=== PATIENT | male | born 1990 | race Caucasian/White ===

== ENCOUNTER → 2018-03-14 15:05 | Outpatient (CLI) | payer MEDICAID, SELFPAY ==
[2018-03-14 17:32] LABS: Chlamydia Trachomatis by PCR POSITIVE (Negative); Neisserai gonorrhoeae by PCR Positive (Negative); Probe Check PASS; Trichomonas Vag DNA by PCR Negative (Negative)
[2018-03-14 17:33] LABS: Probe Check PASS; Sample Adequacy Control PASS; Specimen Processing Control PASS
== END ==
PROVIDERS: Family Provider Family Medicine; PCP Family Medicine; Visit Provider Family Medicine
DX: N39.0 Urinary tract infection, site not specified (principal)
CPT/HCPCS: 87491; 87591; 87661

== ENCOUNTER → 2018-11-27 10:28 | Outpatient (CLI) | payer MEDICAID, SELFPAY ==
[2018-11-26 12:57] VITALS: BMI 27.3
--- NOTE | 2018-11-27 11:08 | RAD_ITS ---
STUDY: X-RAY - LUMBAR SPINE REASON FOR EXAM: Male, 27 years old. Low back pain TECHNIQUE: 3 view(s) of the lumbar spine were obtained. COMPARISON: None FINDINGS: Normal lumbar lordosis. There is no substantial scoliosis. There is a normal alignment of the vertebrae. Normal vertebral bodies and endplates. Normal disc space heights. The soft tissue structures are unremarkable. RAD/Lumbar Spine 2 or 3 Views IMPRESSION: Normal x-ray examination of the lumbar spine. Electronically Signed: Daniel Childers MD at 12:12 EDT , Service support ,
[2018-11-27 12:22] LABS: Absolute Lymphocyte Count 1.36 X10^3/ul (0.83-4.51); Absolute Neutrophil Count 2.7 X10^3/uL (2.0-7.7); Basophil# 0.05 X10^3/uL; Eosinophil# 0.33 X10^3/uL; Eosinophils% 6.8 % (0-5); Hematocrit 47.4 % (40-54); Lymphocyte # 1.36 X10^3/ul (4.0); Lymphocyte % 28.2 % (19-41); Mean Corp Hgb Conc 33.8 g/gl (32-36); Mean Corpuscular Hgb 28.6 pg (27.0-32.0); Mean Corpuscular Volume 84.8 fL (80-94); Mean Platelet Vol. 10.7 fl (6.2-12.0); Monocyte# 0.42 X10^3/uL; Monocyte% 8.7 % (0-10); Neutrophil # 2.67 X10^3/uL (2.7-7.7); Neutrophil % 55.3 % (47-70); Platelet Count 216 K/mm3 (150-450); RBC Distribution Width CV 12.6 % (11.6-14.6); RBC Distribution Width SD 38.8 fl (35.1-43.9); Red Blood Count 5.59 M/mm3 (4.6-6.2); White Blood Count 4.8 K/mm3 (4.4-11.0)
[2018-11-27 12:28] LABS: POSITIVE COUNT NO; POSITIVE DIFFERENTIAL NO; POSITIVE MORPHOLOGY NO
[2018-11-27 12:37] LABS: ALB/GLOB Ratio 1.2 RATIO (0.9-2.4); AST(SGOT) 66 U/L (15-37); Alanine Aminotransfer ALT/SGPT 125 U/L (16-61); Albumin, Serum 4.3 g/dL (3.2-5.0); Alkaline Phosphatase 77 U/L (45-117); Anion Gap 3 (5-15); BUN 18 mg/dL (7-18); BUN/Creat Ratio 15.9 RATIO (10-20); Calcium,Total 8.8 mg/dL (8.5-10.1); Chloride 107 mmol/L (98-107); Creatinine, Serum 1.13 mg/dL (0.70-1.30); EST Glomerular Filtration Rate 81 mL/min (>60); Est Glom Filt Rate - Afr Amer 98 mL/min (>60); Globulin 3.6 g/dL (2.2-4.2); Glucose 82 mg/dL (74-106); Potassium 4.7 mmol/L (3.5-5.1); Protein, Total 7.9 g/dL (6.4-8.2); Sodium Level 135 mmol/L (136-145)
[2018-11-27 13:24] LABS: HIV - WCH Non-Reactive (Nonreactive)
[2018-12-11 14:06] LABS: HCV Quant. RNA PCR See Final Results IU/mL (.)
[2018-12-12 15:41] LABS: HCV log 10 7.017 (.); HEPATITIS B SURFACE AG Negative (Negative); HLA B27 Negative (.)
== END ==
LOC: BIMLAB 10:29 → RAD 11:00
PROVIDERS: Family Provider Internal Medicine; PCP Internal Medicine; Referring Provider Internal Medicine; Visit Provider Internal Medicine
DX: M54.9 Dorsalgia, unspecified (principal); G89.29 Other chronic pain; B19.20 Unspecified viral hepatitis C without hepatic coma
CPT/HCPCS: 36415; 72100; 80053; 81374; 85025; 86703; 87340; 87522

== ENCOUNTER 2019-02-28 12:21 | Emergency (ER) | payer MEDICAID, SELFPAY ==
[2018-12-27 14:24] VITALS: BMI 27.3
[2019-02-28 12:22] VITALS: BP 135/83; PULSE 76; RESP 16; TEMP 36.9; O2SAT 96; BMI 24.5
[2019-02-28 12:44] VITALS: BP 135/83; PULSE 76; RESP 16; TEMP 36.9; O2SAT 96
--- NOTE | 2019-02-28 13:08 | ED.DEP ---
ED Disposition - Plan for ED Patient: Instructions: Contact Dermatitis Prescriptions: Prednisone [Deltasone] 20 mg PO DAILY #4 tablet Referrals: Cheko Casillas MD [Primary Care Provider] -
--- NOTE | 2019-02-28 13:10 | ED.VISSUMM ---
- ER Visit Summary Date of Service: 02/28/19 Chief Complaint: Rash History of Present Illness: The patient is a 28 M presenting with rash on bilateral arms. Patient works outside. He states he had redness on both arms yesterday. He initially thought it was sunburn. He then noted a rash to his forearms. He states this does not itch. He thought it might be poison heber. He states that yesterday he had cramping in both hands. He was not drinking enough fluids. This has improved. Denies other complaints. Physical Examination: Vitals are stable. Patient is afebrile. Alert no acute distress. HEENT exam is unremarkable. No mucous membrane involvement Neck is supple. Lungs are clear and equal bilaterally. Heart is regular rate and rhythm. Abdomen is soft nontender nondistended. Extremities are unremarkable. Skin is warm and dry. mild maculopapular rash bilateral volar forearms. No areas of fluctuance. Neurovascularly intact distally No focal neurologic deficit. Remainder of exam is unremarkable. Emergency Department Course and Treatment: Patient declined blood work. He was given a short course of prednisone. Advised to follow-up with primary care physician. Advised return to ED if worsening complaints. Disposition: Discharge home Impression: Contact dermatitis This note was generated with [employer] dictation software. It may contain incorrect words, spelling, and punctuation that were not noted in review of the chart prior to signing ED Disposition - Plan for ED Patient: Instructions: Contact Dermatitis Prescriptions: Prednisone [Deltasone] 20 mg PO DAILY #4 tab Prescription Printed Referrals: Cheko Casillas MD [Primary Care Provider] -
[2019-02-28] MEDS: predniSONE 20 MG Tablet 40 MG PO (13:27)
[2019-02-28 13:42] VITALS: BP 130/84; PULSE 78; RESP 16; O2SAT 96
== END 2019-02-28 13:38 | disposition home or self-care (01) ==
PROVIDERS: Emergency Provider Emergency Medicine; Family Provider Internal Medicine; PCP Internal Medicine
DX: L25.9 Unspecified contact dermatitis, unspecified cause (principal); Z86.19 Personal history of other infectious and parasitic diseases
CPT/HCPCS: 99282

== ENCOUNTER 2019-04-12 02:18 | Emergency (ER) | payer SELFPAY ==
[2019-04-12 02:19] VITALS: BP 140/85; PULSE 105; RESP 16; TEMP 37.1; O2SAT 98; BMI 23.7
--- NOTE | 2019-04-12 03:02 | ED.VIS.GEN ---
History of Present Illness Chief Complaint: Back Narrative: Patient is a 28-year-old male who presents with back pain. He was helping a friend to move. He was holding a piece of furniture about level with his head when the person on the other and dropped his end. The patient states he tried to save it. He tensed up and twisted his back. He complains of pain in his mid back on both sides. He then went to work and his symptoms continue to worsen. No numbness tingling weakness. No chest pain or shortness of breath. Patient is already on Flexeril for history of lower back pain. Past Medical History - Allergies and Home Meds Allergies/Adverse Reactions: Allergies No Known Allergies Allergy (Verified 02/28/19 12:28) Primary Care Physician: Cheko Casillas MD [Primary Care Provider] - Past Medical History: None Smoking Status: Former smoker Review of Systems All systems negative except as indicated General: Denies: Fever Cardiovascular: Denies: Chest pain Respiratory: Denies: Dyspnea Musculoskeletal: Reports: Back pain Physical Exam Vital Signs/Narrative: Vital Signs Temp Pulse Resp BP Pulse Ox 04/12/19 02:19 98.8 F 105 H 16 140/85 H 98 Inital Vital Signs reviewed: Yes General: Well nourished, Well developed Head: Normocephalic Eyes: EOMI ENT: Moist mucous membranes Neck: Supple Cardiovascular: Regular rate, Regular rhythm Respiratory: No distress, CTA bilaterally, - - Equal breath sounds bilaterally Back: - - Patient has bilateral paraspinal lower thoracic tenderness no midline pain Skin: Normal color Neurological: Alert Psychological: Normal affect Diagnostic/Tx/Re-eval - Medical Decision Making History and examination are consistent with a thoracic strain. He was advised on supportive care. He was given a prescription for naproxen. He understands to return for new or worsening symptoms. He was discharged. ED Disposition - Plan for ED Patient: Disposition: Home or Assisted Living Diagnosis: Thoracic myofascial strain Instructions: Back Sprain/Strain Prescriptions: Naproxen [Naprosyn] 500 mg PO BID #20 tab Prescription Printed Referrals: Cheko Casillas MD [Primary Care Provider] -
[2019-04-12] MEDS: Naproxen 500 MG Tablet PO (03:12)
[2019-04-12 03:13] VITALS: RESP 16
== END 2019-04-12 03:14 | disposition home or self-care (01) ==
PROVIDERS: Emergency Provider Emergency Medicine; Family Provider Internal Medicine; PCP Internal Medicine
DX: S29.012A Strain of muscle and tendon of back wall of thorax, initial encounter (principal); Z87.891 Personal history of nicotine dependence; M54.5 Low back pain; X50.1XXA Overexertion from prolonged static or awkward postures, initial encounter; Y93.E6 Activity, residential relocation; Y92.89 Other specified places as the place of occurrence of the external cause; Y99.9 Unspecified external cause status
CPT/HCPCS: 99282

== ENCOUNTER 2021-01-30 15:32 | Emergency (ER) | payer MEDICAID, SELFPAY ==
[2021-01-30 15:32] VITALS: BP 142/96; PULSE 55; RESP 16; TEMP 36.7; O2SAT 100; BMI 22.7
--- NOTE | 2021-01-30 15:40 | EDS_ITS ---
HPI History of Present Illness Chief Complaint: Overdose Narrative Narrative: 30-year-old male presenting with drug overdose. Its unclear what his intention was. Patient states that he took 3 g of fentanyl, 3 g of heroin, and some methamphetamine which is unclear at his dose. Patient is very groggy. He has pinpoint pupils. His vital signs are stable currently. [facility] Medical History Chronic back pain History of positive hepatitis C History of substance abuse Seasonal allergies Home Medications flu vac qs 2016(4 yr up)CD(PF) 60 mcg IM ONCE #1 ml 09/20/17 [Clinic Last Taken Unknown] cyclobenzaprine 10 mg tablet 10 mg PO BID PRN #60 tab 11/26/18 [Rx Last Taken Unknown] acetaminophen 650 mg tablet,extended release 650 mg PO Q8H PRN #60 tab 12/27/18 [Rx Last Taken Unknown] back brace #1 ea 12/27/18 [Rx Last Taken Unknown] methylprednisolone 4 mg tablets in a dose pack See Rx Instructions PO PER PKG DIR #21 tab 12/27/18 [Rx Last Taken Unknown] loratadine 10 mg tablet See Rx Instructions .ROUTE .COMPLEX #28 tablet 01/14/19 [Rx Last Taken Unknown] prednisone 20 mg PO DAILY #4 tab 02/28/19 [Rx Last Taken Unknown] naproxen 500 mg PO BID #20 tab 04/12/19 [Rx Last Taken Unknown] Allergy/AdvReac Type Severity Reaction Status Date / Time No Known Allergies Allergy Verified 01/30/21 15:34 Family History Father Alcoholism Social History Smoking Status: Unknown if ever smoked Electronic Cigarette Use: with nicotine alcohol intake: former substance use type: former substance user Date of last use: 07/10/17, heroin and methamphetamine what type of physical activity do you participate in: running, yoga and weight training frequency: daily ROS ROS ED Constitutional Constitutional ED: Denies fever(s) or subjective Eyes Eyes: Denies blurry vision or change in vision ENT ENT ED: Denies rhinorrhea or sore throat Cardiovascular Cardiovascular: Denies chest pain or palpitations Respiratory/Chest Respiratory/Chest: Denies cough or dyspnea Gastrointestinal Gastrointestinal: Denies abdominal pain, nausea or vomiting Genitourinary Genitourinary ED: Denies urinary frequency Musculoskeletal Musculoskeletal: Denies arthralgias, myalgias or neck pain Integumentary Denies abscess or rash Neurologic Neurologic: Denies headache(s) or weakness Psychiatric Psychiatric: Denies anxiety, depression, suicidal ideation or suicidal thoughts Endocrine Endocrinology: Denies polydipsia or polyuria EXAM Physical Exam Const Vital Signs: 01/30/21 15:32 01/30/21 15:42 Temperature 98.1 F Temperature Source Temporal Pulse Rate 55 L 55 L Respiratory Rate 16 24 H Blood Pressure 142/96 H 125/85 H Blood Pressure Mean 111 98 Pulse Ox 100 100 Oxygen Delivery Method Room Air Room Air Positive well nourished General Appearance ED: other Patient responsive but slow to respond ; Negative for pallor HEENT Reports moist mucous membranes atraumatic Eyes PERRL and EOMs intact bilaterally General Eye ED: Negative for scleral icterus Resp normal respiratory effort and clear to auscultation bilaterally Cardio regular rate and regular rhythm GI soft to palpation and non-tender Extremity General Extremety ED: Yes edema and tenderness General Extremity: edema Neuro oriented x3 Sensorium / Orientation: alert Psych Attitude: other Slow to respond Skin Skin Narrative: Track andres in the bilateral antecubital fossa. No surrounding cellulitic changes. General Skin Exam: Negative for jaundice or pallor MDM MDM MDM Narrative Medical decision making narrative: Patient presenting with overdose on methamphetamine, fentanyl, heroin. His friend is with him and states that was a probably about 30 minutes ago. His friend relates a history of congestive heart failure he believes. In the medical record I do see that he has hep C. Since his pupils are pinpoint and he is slow to respond he will get 2 of intranasal Narcan. IV access will be established. Lab work-up is started. Patient will be placed on the monitor. He will be frequently reevaluated. Review of his outside medical record shows that he has a suicide attempt which states it was my knife. He states that he is not homicidal or suicidal now. He states that the drugs were just not very good so he kept taking them. Reevaluation 1550 and patient is awake and alert and talking. We were able to obtain IV access but but were not able to obtain lab work. After a few attempts patient refuses blood work. Patient remained alert and awake. At one point he became angry and took his IV out and left on his own. Impression: 1. Opioid overdose 2. Methamphetamine abuse Discharge Plan Triage Chief Complaint: Overdose ED Provider: Roque Madrid Dx/Rx/DC Orders Instructions: ED Overdose, Opiate, ED Drug Abuse Prescriptions: No Action flu vac qs 2016(4 yr up)CD(PF) 60 mcg (15 mcg x 4)/0.5 mL syringe 60 mcg IM ONCE Qty: 1 RF: 0 cyclobenzaprine 10 mg tablet 10 mg PO BID PRN (Reason: muscle spasm) Qty: 60 RF: 2 acetaminophen [Tylenol 8 Hour] 650 mg tablet extended release 650 mg PO Q8H PRN (Reason: fever or pain) Qty: 60 RF: 1 methylprednisolone [Medrol (Dixon)] 4 mg tablets,dose pack See Rx Instructions PO PER PKG DIR Qty: 21 RF: 0 (DME) back brace misc See Dose Instructions .ROUTE .MEDSUPPLY Qty: 1 RF: 0 prednisone 20 MG tablet 20 mg PO DAILY Qty: 4 RF: 0 naproxen 500 MG tablet 500 mg PO BID Qty: 20 RF: 0 loratadine 10 mg tablet See Rx Instructions .ROUTE .COMPLEX Qty: 28 RF: 2 Primary Care Provider: Cheko Casillas Referrals: Cheko Casillas MD [Primary Care Provider] - Disposition Disposition: Elopement
[2021-01-30 15:42] VITALS: BP 125/85; PULSE 55; RESP 24; O2SAT 100
[2021-01-30] MEDS: Naloxone 2 MG/2 ML Syringe NASAL (15:42)
--- NOTE | 2021-01-30 16:08 | ED.RN ---
Pt ambulatory out the department. Refuses further care.
== END 2021-01-30 17:11 | disposition left against medical advice (07) ==
PROVIDERS: Emergency Provider Student in an Organized Health Care Education/Training Program; PCP Internal Medicine
DX: T40.2X1A Poisoning by other opioids, accidental (unintentional), initial encounter (principal); F15.10 Other stimulant abuse, uncomplicated
CPT/HCPCS: 96374; 99283; A4216

== ENCOUNTER 2021-03-28 18:54 | Emergency (ER) | payer MEDICAID, SELFPAY ==
[2021-03-28 18:55] VITALS: BP 164/96; PULSE 100; RESP 15; TEMP 36.7; BMI 25.1
--- NOTE | 2021-03-28 19:41 | ED.RN ---
PATIENT REPORTS HE WANTS INFO ON DETOX BUT DOES NOT WANT TO ENTER DETOX AND JUST WANTS SEEN FOR STD EXPOSURE BUT STATES HE IS GETTING EVICTED AND CANNOT WAIT TO BE SEEN. NOT SEEN BY DOCTOR AND NO TESTING DONE.. HE REPORTS HE IS WALKING HOME AND IS ALERT ORIENTED X 4 AND WALKING WITHIN ISSUES SO LET HIM GO. HE STATES HE WANTS TO RETURN TOMORROW FOR STD CHECK INSTEAD.
== END 2021-03-28 19:30 ==
LOC: ED 19:50
PROVIDERS: PCP Internal Medicine
DX: K59.9 Functional intestinal disorder, unspecified (principal)
CPT/HCPCS: 99282